=== PATIENT | female | born 1965 | race Two or more races ===

== ENCOUNTER 2023-12-31 17:29 | Emergency (ER) | payer OTHER ==
[~2023-12-31] VITALS: Ht 157.5 cm; Wt 80.0 kg
[2023-12-31] MEDS ORDERED: CYCL-837 PO (22:46)
[2023-12-31] MEDS ORDERED: ACET500T58 PO (22:46)
[2023-12-31 23:27] VITALS: BP 127/78; PULSE 78; RESP 16; TEMP 98.1
[2023-12-31] MEDS: ACETAMINOPHEN 325 MG TAB PO ONE (23:41)
[2023-12-31 23:49] VITALS: O2SAT 96
== END 2023-12-31 23:53 | disposition home or self-care (01) ==
LOC: ER 17:29 → EDBD 17:29 → ER 23:51
DX: S16.1XXA Strain of muscle, fascia and tendon at neck level, initial encounter (principal); E11.9 Type 2 diabetes mellitus without complications; I10 Essential (primary) hypertension; Z90.710 Acquired absence of both cervix and uterus; V43.62XA Car passenger injured in collision with other type car in traffic accident, initial encounter; Y93.89 Activity, other specified; Y92.89 Other specified places as the place of occurrence of the external cause; Y99.8 Other external cause status
CPT/HCPCS: 72125